=== PATIENT | male | born 1955 | race Caucasian/White ===

== ENCOUNTER → 2020-04-03 | Outpatient (CLI) | payer OTHER ==
[~2020-04-03] MED LIST: ABILIFY 5 MG TAB5 M1 PO; ADVAIR 100-501 EACH INH; ADVAIR 250-501 EACH INH; ASPIRIN EC81 M1 PO; ASPIRIN325 PO; BENAZEPRIL HCL20 MG PO; BYSTOLIC2.5 MG PO; COMBIVENT INH; EFFIENT10 MG PO; FUROSEMIDE 20 M20 M1 PO; GLUCOPHAGE1000 MG PO; GLUMETZA500 PO; JARDIANCE10 MG PO; LIPITOR40 MG PO; LOPRESSOR 50 MG50 M1 PO; MOTION RELIEF25 MG PO; NIASPAN 500 MG500 M1 PO; NITROGLYCERIN0.4 MG SL; PRILOSEC 20 MG20 MG PO; PRISTIQ50 M1 PO; SIMVASTATIN5 MG PO; TRICOR145 MG PO; VALIUM2 MG PO; ZETIA10 MG PO; ZOCOR40 MG PO
== END ==
LOC: SJCVCIMAG 11:43
PROVIDERS: ATTEND Internal Medicine Cardiovascular Disease
DX: I08.0 Rheumatic disorders of both mitral and aortic valves (principal); R94.31 Abnormal electrocardiogram [ECG] [EKG]; I11.9 Hypertensive heart disease without heart failure; I25.810 Atherosclerosis of coronary artery bypass graft(s) without angina pectoris; E78.00 Pure hypercholesterolemia, unspecified; E11.9 Type 2 diabetes mellitus without complications; I65.23 Occlusion and stenosis of bilateral carotid arteries; Z95.1 Presence of aortocoronary bypass graft; Z79.899 Other long term (current) drug therapy

== ENCOUNTER 2020-04-09 09:41 | Inpatient (IN) | payer MEDICARE, OTHER ==
[2020-04-09] VITALS (11 sets, daily range): BP systolic 118–170; BP diastolic 66–97
[~2020-04-09] VITALS: Ht 167.6 cm; Wt 91.1 kg
[~2020-04-09 09:41] MED LIST changes: -JARDIANCE10 MG PO; -ZETIA10 MG PO
[2020-04-09 10:09] LABS: ABSOLUTE NEUTROPHILS 8.6 thou/uL (1.4-8.2); BASOPHILS 0.3 % (0.0-2.0); EOSINOPHILS 1.5 % (0.0-3.0); HEMATOCRIT 38.7 % (42.0-52.0); LYMPHOCYTES 21.6 % (24.0-44.0); MCH 28.2 pg (26.0-34.0); MCHC 33.6 g/dL (28.0-37.0); MCV 84.1 fL (80.0-100.0); MONOCYTES 6.1 % (1.0-8.0); PLATELET COUNT 272 thou/uL (150-400); POLYS 70.5 % (36.0-66.0); RDW 14.5 % (10.5-14.5); WBC 12.1 thou/uL (4.0-11.0)
[2020-04-09 10:19] LABS: ANION GAP 13 mmol/L (7-16); BUN 27 mg/dL (7-18); CALCIUM 9.7 mg/dL (8.5-10.1); CHLORIDE 100 mmol/L (98-107); CO2 24 mmol/L (21-32); CREATININE 1.2 mg/dL (0.7-1.3); GLUCOSE 247 mg/dL (74-106); POTASSIUM 4.4 mmol/L (3.5-5.1); SODIUM 137 mmol/L (136-145)
[2020-04-09 10:27] LABS: LARGE PLATELETS FEW
[2020-04-09 10:29] LABS: TROPONIN-I <0.06 ng/mL (<0.06)
--- NOTE | 2020-04-09 11:39 | NUR ---
[facility] SPOKE WITH FACE BOSS. THEY WILL BE PICKING PT UP AROUND NOON.
--- NOTE | 2020-04-09 12:07 | EKG ---
[facility] [place] [address] ELECTROCARDIOGRAM REPORT Name: DANDRE REYNOLDS Room #: 170-4 ADM IN M.R.#: [id number] Admission: 04/09/20 Attend Phys: Grey Esparza MD, Discharge: Date of : 55 Report #: [id number] THIS REPORT FOR: cc: KOLTON - Lisa family physician/PCP KOLTON - No family physician/PCP Osmar Chang MD [facility] THIS REPORT FOR: //name// [facility] ED Test Date: 2020-04-09 Test Time: 09:46:23 Pat Name: DANDRE REYNOLDS Department: Room: 170 Gender: M Product Support Rep: RACHEL : 1955 Requested By: Jass Saeed Order Number: [id number] MD: Osmar Chang Measurements Intervals [place] Rate: 77 P: 74 WY: 255 QRS: 5 QRSD: 96 T: 87 QT: 380 QTc: 431 Interpretive Statements Sinus rhythm Prolonged WY interval Borderline low voltage, extremity leads Minimal ST depression, lateral leads Compared to ECG 03/25/2013 06:19:34 ST (T wave) deviation now present T-wave abnormality no longer present Possible ischemia no longer present Electronically Signed On 04-09-2020 12:07:19 CDT by Osmar Chang [email or web address] <ELECTRONICALLY SIGNED> By: Osmar Chang MD, [facility] 04/09/20 1207 5 Osmar Chang MD, [facility] /EPI
--- NOTE | 2020-04-09 17:56 | NUR ---
PT ADMITED FROM MANAGER MOTOR. ADMISSION HX AND ASSESSMENT COMPLETED. VSS. DENIED HAVING PAIN OR DISCOMFORT. RIGHT GROIN INCISION. C/D/I. NO HEMATOMA NOTED. NEW ORDERS NOTED.
[2020-04-10 01:06] LABS: GLYCOHEMOGLOBIN (HGB A1C) 9.2 % (4.8-5.6)
--- NOTE | 2020-04-10 02:48 | NUR ---
CARE ASSUMED 1900. PT ALERT AND ORIENTED. VITALS STABLE S/P CARDIAC CATH. R GROIN SITE C/D/I. SR ON THE MONITOR. DENIES CHEST PAIN, NAUSEA, VOMITING. CPAP ORDERED FOR SLEEP APNEA.
[2020-04-10 04:32] VITALS: BP 154/77
[2020-04-10 05:22] LABS: ALBUMIN 3.8 g/dL (3.4-5.0); CALCIUM 9.2 mg/dL (8.5-10.1); CREATININE 1.3 mg/dL (0.7-1.3); POTASSIUM 4.4 mmol/L (3.5-5.1); TOTAL BILIRUBIN 0.5 mg/dL (0.2-1.0); TOTAL PROTEIN 7.8 g/dL (6.4-8.2)
[2020-04-10 06:03] LABS: TROPONIN-I 0.87 ng/mL (<0.06)
[2020-04-10 06:15] LABS: HEMATOCRIT 38.1 % (42.0-52.0); HEMOGLOBIN 12.3 gm/dL (14.0-18.0); MCH 27.6 pg (26.0-34.0); MCHC 32.3 g/dL (28.0-37.0); MCV 85.5 fL (80.0-100.0); RBC 4.46 mil/uL (4.50-6.00); RDW 14.4 % (10.5-14.5); WBC 11.3 thou/uL (4.0-11.0)
[2020-04-10 07:32] VITALS: BP 143/69
[2020-04-10] MEDS ORDERED: EFFIENT10 MG PO (07:36)
[2020-04-10] MEDS ORDERED: JARDIANCE10 MG PO (07:49)
[2020-04-10] MEDS ORDERED: ZETIA10 MG PO (07:49)
--- NOTE | 2020-04-10 08:54 | EKG ---
[facility] [place] [address] ELECTROCARDIOGRAM REPORT Name: DANDRE REYNOLDS JR Room #: 201-P ADM IN M.R.#: [id number] Admission: 04/09/20 Attend Phys: Grey Esparza MD, Discharge: Date of : 55 Report #: [id number] THIS REPORT FOR: cc: KOLTON - No family physician/PCP FAM - No family physician/PCP Chintan Dozier MD [facility] THIS REPORT FOR: //name// [facility] Test Date: 2020-04-10 Test Time: 08:05:04 Pat Name: DANDRE REYNOLDS Department: Room: 201 P Gender: M Human Resource Analyst: Edgardo LEE : 1955 Requested By: Heena Francisco Order Number: [id number] MD: Chintan Dozier Measurements Intervals [place] Rate: 73 P: -11 NE: 248 QRS: 2 QRSD: 94 T: 119 QT: 384 QTc: 424 Interpretive Statements Sinus rhythm Prolonged NE interval Nonspecific T wave abnormality Compared to ECG 04/09/2020 09:46:23 T-wave abnormality now present Electronically Signed On 04-10-2020 8:54:00 CDT by Chintan Dozier [email or web address] <ELECTRONICALLY SIGNED> By: Chintan Dozier MD, FACC 04/10/2054 4 4 Chintan Dozier MD, FACC /EPI
[2020-04-10 09:54] VITALS: BP 143/69
--- NOTE | 2020-04-10 17:18 | CATHLAB ---
[facility] [place] [address] INVASIVE PROCEDURE REPORT Name: DANDRE REYNOLDS Room #: 201-P DIS IN M.R.#: [id number] Admission: 04/09/20 Attend Phys: Grey Esparza MD, Discharge: 04/10/20 Date of : 55 Report #: [id number] THIS REPORT FOR: cc: FAM - No family physician/PCP FAM - No family physician/PCP Grey Esparza MD [facility] ~ APPROVED REPORT Study performed: 04/09/2020 12:02:36 Patient Details The patient is a 65 year-old male Event Personnel Grey Esparza Durable Medical Equipment Technician, Wilian Steven RN RN, Annie Summers RTR, TRAV Scrub, Ronald Justin RTR Monitor, Tori Haji(R)() Trade Manager Procedures Performed Art Access - R femoral artery* Left Heart Cath w/or w/o Coronaries 2972605 [facility] CHON Place w/wo Plasty Single LAD 302559 04643 Initial Mod Sed Same Phys/QHP Gr5y 879787 04120 Mod Sed Same Phys/QHP Ea 979535 Hemostasis w/ Mynx Abdominal Aortography 830866 Indication Chest pain Previous Procedures/Diagnoses Previous CABG Procedure Narrative The Right Groin^ was infiltrated with 1% Lidocaine subcutaneous anesthesia. A PINNACLE 6FR Sheath #[id number] sheath was inserted into the RFA^. Coronary angiography was performed using coronary diagnostic catheters. The right coronary system was accessed and visualized with a JR4 catheter. The left coronary system was accessed and visualized with a JL4 catheter. The left ventricle was accessed and visualized with a PIGTAIL catheter. Left ventriculogram was performed in 30 degree projection. An aortogram of the abdominal aorta was performed. Closure device was deployed with a 6 Fr MYNX CONTROL 6F/7F L#[id number]. Hemostasis was obtained with manual pressure following sheath removal without any complications. The patient tolerated the procedure well and there were no complications associated with the procedure. There was no hematoma. [facility] [address] [id number] INVASIVE PROCEDURE REPORT Name: DANDRE REYNOLDS Edgardo Room #: 201-P [facility]..#: [id number] Admission: 04/09/20 Attend Phys: Grey Esparza, Discharge: 04/10/20 Date of : 55 Report #: [id number] Intraoperative Conscious Sedation Sedation start time: 1253 Case end Time: 1413 Fentanyl 100 mcg Versed 4 mg Fluoro Time: 18.30 minutes Dose: DAP 61574.80 cGycm2 2966 mGy Contrast Type and Amount: Omnipaque 260 ml Hemodynamics The aortic pressure is 124/61 mmHg with a mean of 86 mmHg. The left ventricular pressure is 136/15 mmHg with a mean of mmHg. The left ventricular end diastolic pressure is 19 mmHg. PCI Technique Lesion Percutaneous coronary intervention was performed on the Unspecified. A LAUNCHER 6FR EBU 4.5 #[id number] Guide Catheter was used to engage the ostium. A Luge Wire .014 x 182CM #[id number] Interventional Guidewire was used to cross the lesion. BALLOON DILATION A Balloon catheter Sprinter OTW 2.5 x 12 #[id number] was inserted and inflated up to 8.00atm for 28seconds. Additional Inflation: 12.00atm for 26seconds. STENT DEPLOYMENT A drug-eluting stent RESOLUTE JARETT OTW 2.5 X 8 #[id number] was inserted and inflated up to 16.00atm for 30seconds. POST STENT DEPLOYMENT BALLOON DILATION A Balloon catheter TREK NC OTW 2.75 X 8 was inserted and inflated up to 14.00atm for 21seconds. Conclusion 1. Left main moderately disease giving rise to an LAD which occludes and a circumflex OM branch moderate in size #2 the LAD proximally occludes moderate disease to the first septal management supervisor. This is filled via WYNN graft distally. #3 the WYNN to LAD is intact tortuosity of this vessel is noted but no occlusive disease briskly filling the LAD which extends to the apex and is widely patent but relatively small in caliber. #4 SVG to diagonal occluded #5 SVG to OM occluded #6 SVG to PDA occluded #7 dominant proximal RCA occluded [facility] [address] [place] [address] INVASIVE PROCEDURE REPORT Name: DANDRE REYNOLDS Room #: 201-P DIS IN M.R.#: [id number] Admission: 04/09/20 Attend Phys: Grey Esparza, Discharge: 04/10/20 Date of : 55 Report #: [id number] #8 normal left jugular size with inferior basilar hypokinetic segment EF is 50 to 55% #9 calcified and ectatic abdominal aorta heavily calcified throughout the entirety and the iliac system but no occlusive disease or aneurysm. #10 successful PTCA stent of the proximal OM cocopah branch 90% lesion to 0% with a 2.5 mm Jarett stent ARMANDO grade III flow Recommendations and plan: Continue aggressive risk factor modification. Dual antiplatelet therapy initiated. The left system is providing some collateral filling to the mid distal PDA. There is a limited inferior basilar infarct. Patient hemodynamically stable upon transfer to the CCU. <ELECTRONICALLY SIGNED> By: Grey Esparza MD, FACC 04/10/201716 16 16 Grey Esparza MD, FACC /INF
--- NOTE | 2020-04-10 19:23 | NUR ---
ASSESSMENT CHARTED - MEDS PER MAR - NO CO'S OF PAIN OR NASUEA. LANNY DIET AND FLUIDS. UP AD SONIA ON THE UNIT- STEADY ON FEET. GROIN SITE C/D/I. SEEN BY CARDIAC REHAB NURSE AND ENDOCRINE THIS AM - PT HOME - INSTRUCTION RE HOME MEDS/ CARE AND FOLLOW UP GIVEN TO PATIENT AND SPOUSE. STATED UNDERSTANDING OF INSTRUCTION GIVEN. IV AND MONITOR REMOVED P[RIOR TO D/C. PT LEFT UNIT VIA WHEEL CHAIR - HOME VIA PVT VEHICLE ACCOMPANIED BY - NO CO'S AT TIME OF D/C.
--- NOTE | 2020-04-11 10:30 | HC ---
[facility] [place] [address] CONSULTATION Name: DANDRE REYNOLDS JR Room #: 201-P [facility] IN .R.#: [id number] Admission: 04/09/20 Attend Phys: Grey Esparza MD, Discharge: 04/10/20 Date of : 55 Report #: [id number] THIS REPORT FOR: cc: KOLTON Gonzalez family physician/PCP KOLTON Gonzalez family physician/PCP Zachery Miles MD ~ DATE OF SERVICE: 04/10/2020 ENDOCRINE CONSULTATION NOTE CONSULTING PHYSICIAN: Dr. Esparza. REASON FOR CONSULTATION: Uncontrolled type 2 diabetes mellitus. HISTORY OF PRESENT ILLNESS: This is a 65-year-old male patient whose medical background is significant for CAD, type 2 diabetes mellitus, hyperlipidemia, dyslipidemia, hypertension. The patient was admitted on the with complaint of progressive chest pain and was admitted for further care and monitoring. The patient notes that he has had type 2 diabetes mellitus for many years. He has been most recently maintained on metformin 1000 mg b.i.d., as well as glyburide 10 mg daily. He notes that his blood glucose values have run consistently over 200 mg/dL. He was recently started on Jardiance 10 mg daily. The patient is not aware of issues pertaining to diabetic retinopathy or major difficulties with diabetic neuropathy. He has an extensive history of coronary artery disease including CABG x 5 in 2003 in addition to multiple MIs. The patient is hyperlipidemic and dyslipidemic and is maintained on a combination of atorvastatin 40 mg at bedtime and fenofibrate 145 mg daily. He is also hypertensive and is maintained on Lotensin 20 mg daily as well as furosemide 20 mg daily and metoprolol 25 mg b.i.d. REVIEW OF SYSTEMS: CONSTITUTIONAL: He has intermittent difficulties with fatigue, tiredness, but no fever, chills or significant body weight changes. HEENT: Negative for sore throat, sinus pain or ear drainage. PULMONARY: Occasional shortness of breath and cough, but not hemoptysis. CARDIAC: Chest pain on presentation as noted in HPI. Occasional palpitations, no syncope or presyncope. GASTROINTESTINAL: Intermittent difficulties with abdominal discomfort, nausea, but no vomiting. NEUROLOGY: Negative for loss of consciousness, seizure activity or severe frequent headaches. Otherwise, review of systems is noncontributory other than those mentioned in HPI. [facility] [address] [place] [address] CONSULTATION Name: DANDRE REYNOLDS Edgardo Room #: 201-P [facility] IN Lana#: [id number] Admission: 04/09/20 Attend Phys: Grey Esparza MD, Discharge: 04/10/20 Date of : 55 Report #: [id number] PAST MEDICAL HISTORY: 1. Type 2 diabetes mellitus. 2. Hypertension. 3. Hyperlipidemia. 4. Dyslipidemia. 5. Coronary artery disease, status post coronary artery bypass graft x 5 in 2003, status post 3 MIs. 6. Obstructive sleep apnea. 7. Chronic obstructive pulmonary disease. 8. Vertigo. 9. Gastroesophageal reflux disease. OUTPATIENT MEDICATIONS: Include furosemide 20 mg daily, metformin 1000 mg b.i.d., Jardiance 10 mg daily, meclizine 25 mg p.o. t.i.d. p.r.n., aspirin 325 mg daily, Valium t.i.d., atorvastatin 40 mg daily, Effient 10 mg daily, Nitrostat p.r.n., TriCor 145 mg daily, Lopressor 25 mg b.i.d., Combivent 1-2 puffs q.6 hours p.r.n., Advair 1 puff b.i.d., Lotensin 20 mg daily, Abilify 5 mg at bedtime, Niaspan 500 mg at bedtime, Prilosec 20 mg daily, Pristiq 50 mg daily. ALLERGIES: THE PATIENT IS ALLERGIC TO AMIODARONE. FAMILY HISTORY: Noncontributory. SOCIAL HISTORY: Ex-smoker, quit in 2003. Denies use of alcohol or illicit drugs. PHYSICAL EXAMINATION: GENERAL: Pleasant male patient not in apparent pain or distress. VITAL SIGNS: Blood pressure is 143/69 mmHg, heart rate is 73 beats per minute, respirations 16 per minute, temperature 36.9 degrees Celsius. CONSTITUTIONAL: He is sitting upright in bed, appears comfortable, not in apparent distress. HEENT: Anicteric sclerae. Intact extraocular motions. NECK: Supple, without JVD, carotid bruits or lymphadenopathy. I do not appreciate thyromegaly. CHEST: Noted for moderate air entry bilaterally with scattered rales. No crackles. HEART: Regular rate and rhythm without murmurs or gallops. ABDOMEN: Soft, lax. No guarding. Active bowel sounds. EXTREMITIES: Lower extremity exam, trace ankle edema bilaterally. No skin breaks or ulcerations. NEUROLOGIC: Awake, alert and oriented to time, place and person. The remainder [facility] [address] [place] [address] CONSULTATION Name: DANDRE REYNOLDS JR Room #: 201-P DIS IN Lana#: [id number] Admission: 04/09/20 Attend Phys: Grey Esparza MD, Discharge: 04/10/20 Date of : 55 Report #: [id number] of his examination is nonfocal. PSYCHIATRIC: Pleasant, interactive. Normal mood and affect. Normal thought process. LABORATORY RESULTS: Blood glucose on arrival was 205, then he had 189 mg/dL. Sodium 139, potassium 4.4, chloride 102, CO2 27, anion gap 10, BUN 21, creatinine 1.3, glucose 167, AST 26, total bilirubin 0.5, calcium 9.2, alkaline phosphatase 72, ALT 34, total protein 7.8, albumin 3.8, EGFR 55, total cholesterol 228, triglycerides 426, HDL 30, LDL cannot be calculated. INR 1.0. White blood count 11.3, hemoglobin 12.3, hematocrit 38.1, platelets 241. Hemoglobin A1c 9.2%. ASSESSMENT AND PLAN: 1. Type 2 diabetes mellitus. Uncontrolled as per his recorded hemoglobin A1c of 9.2% and as per his reported blood glucose values at home. The patient was counseled extensively about the pathogenesis of type 2 diabetes mellitus, its implications, and about the importance of achieving and maintaining adequate glycemic control to avoid diabetic complications including cardiovascular disease, which he has manifested extensively in the past. Given his current outlook, I advised him to continue with metformin and Jardiance therapy, but to convert from glyburide to Tresiba 14 units daily with a plan to continue to monitor his blood glucose routinely and closely at home and then presented for followup in 3-4 weeks in the outpatient setting to assess his progress and adjust his therapy is needed. 2. Hyperlipidemia, dyslipidemia. The patient is currently on a combination of atorvastatin and fenofibrate. His measured lipid panel is indicative of ongoing issues with significant dyslipidemia, I am hopeful that this would improve upon the improvement of his glycemic levels. In the interim, he is advised to continue with the current therapy. 3. Hypertension. The patient's level of blood pressure control is adequate on the current therapy, he is advised to continue with the same. I certainly appreciate this consultation by Dr. Esparza. <ELECTRONICALLY SIGNED> By: Zachery Miles MD 04/11/20 1030 1322 1411 Zachery Miles MD /nt
== END 2020-04-10 10:36 | disposition home or self-care (01) | DRG 246 ==
LOC: ER 09:41 → EROBS 10:54 → 2N 10:54 → TBACV 15:03 → 2N 16:04
PROVIDERS: Emergency Medicine; Nurse Practitioner Adult Health; ADMIT Internal Medicine Cardiovascular Disease; ATTEND Internal Medicine Cardiovascular Disease
DX: I25.110 Atherosclerotic heart disease of native coronary artery with unstable angina pectoris (principal); I50.31 Acute diastolic (congestive) heart failure; J44.9 Chronic obstructive pulmonary disease, unspecified; E11.9 Type 2 diabetes mellitus without complications; I10 Essential (primary) hypertension; E78.5 Hyperlipidemia, unspecified; K21.9 Gastro-esophageal reflux disease without esophagitis; I65.29 Occlusion and stenosis of unspecified carotid artery; Z20.828 Contact with and (suspected) exposure to other viral communicable diseases; Z87.891 Personal history of nicotine dependence; Z95.1 Presence of aortocoronary bypass graft; Z88.8 Allergy status to other drugs, medicaments and biological substances; Z79.899 Other long term (current) drug therapy
CPT/HCPCS: 10081

== ENCOUNTER → 2020-05-08 | Outpatient (CLI) | payer OTHER ==
[~2020-05-08] MED LIST changes: +JARDIANCE10 MG PO; +ZETIA10 MG PO
== END ==
LOC: SJCVC 13:07
PROVIDERS: ATTEND Internal Medicine Cardiovascular Disease
DX: I25.810 Atherosclerosis of coronary artery bypass graft(s) without angina pectoris (principal); R94.31 Abnormal electrocardiogram [ECG] [EKG]; R00.0 Tachycardia, unspecified; I44.0 Atrioventricular block, first degree; E11.9 Type 2 diabetes mellitus without complications; I10 Essential (primary) hypertension; J44.9 Chronic obstructive pulmonary disease, unspecified; E78.00 Pure hypercholesterolemia, unspecified; I65.23 Occlusion and stenosis of bilateral carotid arteries; Z95.1 Presence of aortocoronary bypass graft; Z79.899 Other long term (current) drug therapy; Z87.891 Personal history of nicotine dependence

== ENCOUNTER → 2021-05-29 | Outpatient (CLI) | payer MEDICARE, OTHER | LOC: SJCVC 14:08 | PROVIDERS: ATTEND Internal Medicine Cardiovascular Disease | DX: R94.31 Abnormal electrocardiogram [ECG] [EKG] (principal); I44.0 Atrioventricular block, first degree; I25.810 Atherosclerosis of coronary artery bypass graft(s) without angina pectoris; I10 Essential (primary) hypertension; E78.00 Pure hypercholesterolemia, unspecified; E11.9 Type 2 diabetes mellitus without complications; I65.23 Occlusion and stenosis of bilateral carotid arteries; J44.9 Chronic obstructive pulmonary disease, unspecified; Z79.84 Long term (current) use of oral hypoglycemic drugs; Z79.899 Other long term (current) drug therapy; Z87.891 Personal history of nicotine dependence; Z88.8 Allergy status to other drugs, medicaments and biological substances; Z95.1 Presence of aortocoronary bypass graft; Z90.49 Acquired absence of other specified parts of digestive tract; Z98.890 Other specified postprocedural states ==